=== PATIENT | female | born 1960 | race Caucasian/White ===

== ENCOUNTER 2020-04-22 14:51 | Outpatient (CLI) | payer BC, SELFPAY ==
--- NOTE | 2020-04-22 15:00 | MM_ITS ---
WS: [id number] BILATERAL DIGITAL SCREENING MAMMOGRAPHY WITH CAD CLINICAL INFORMATION: SCREENING HISTORY: Screening mammogram. No current complaints. COMPARISON: . TECHNIQUE: Bilateral CC and MLO views. FINDINGS: The breasts are composed of heterogeneous fibroglandular density tissue, which can limit the detectio n of small underlying mass lesions. Stable 9 mm intramammary lymph node upper outer right breast. No suspicious mass, asymmetry, calcifications, or architectural distortion. No evidence of malignancy. L ucent centered calcifications. MM/[place] [id number] IMPRESSION: BI-RADS: 2-Benign FOLLOW UP: 1 Year Follow-up Recommend return to annual screening mammography.
== END 2020-04-22 14:52 | disposition home or self-care (01) ==
LOC: RADSHAW 14:56
PROVIDERS: Family Provider Family Medicine; PCP Family Medicine; Visit Provider Nurse Practitioner Family
DX: Z12.31 Encounter for screening mammogram for malignant neoplasm of breast (principal)
CPT/HCPCS: 77067

== ENCOUNTER 2020-06-10 11:18 | Outpatient (CLI) | payer BC, SELFPAY ==
[2020-06-10 12:58] LABS: Basophils % 0.2 %; Eosinophils # 0.1 10^3/uL (0.0-0.8); Eosinophils % 1.2 %; Hematocrit 44.4 % (37.0-47.0); Hemoglobin 14.2 g/dL (11.5-15.3); Lymphocytes # 1.6 10^3/uL (0.8-4.8); Lymphocytes % 31.7 %; Mean Corpuscular Hemoglobin 31.1 pg (28.0-34.0); Mean Corpuscular Volume 97.2 fL (81-99); Mean Platelet Volume 9.9 fL (7.4-10.4); Monocytes # 0.6 10^3/uL (0.2-0.9); Monocytes % 11.1 %; Neutrophils # 2.75 10^3/uL (1.8-7.7); Neutrophils % 55.6 %; Nucleated Red Blood Cells % 0 %; Platelet Count 157 10^3/cmm (130-400); Red Blood Count 4.57 10^6/uL (4.1-5.3); Red Cell Distribution Width 12.5 % (12.1-15.1)
[2020-06-10 14:20] LABS: Anion Gap 13.3 (5-19); Blood Urea Nitrogen 15 mg/dL (8-23); Calcium 9.6 mg/dL (8.5-10.5); Carbon Dioxide 29 mmol/L (22-29); Chloride 102 mmol/L (98-107); Glomerular Filtration Rate 85.1 mL/min (90-130); Glucose 102 mg/dL (65-115); Osmolality Calculated 291 mOsm/kg (285-295); Potassium 4.3 mmol/L (3.5-5.1); Sodium 140 mmol/L (136-145)
--- NOTE | 2020-06-10 14:55 | ECG_ITS ---
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 Measurements Intervals [place] Rate: 69 P: 34 IL: 150 QRS: 57 QRSD: 84 T: 45 QT: 402 QTc: 432 Interpretive Statements SINUS RHYTHM INTERPRETATION BASED ON A DEFAULT AGE OF 40 YEARS No previous ECG available for comparison Electronically Signed On 06-10-2020 16:54:21 MOTORCOACH DRIVER by Silvana Bansal M.D. [id number]
== END 2020-06-10 11:19 | disposition home or self-care (01) ==
PROVIDERS: PCP Family Medicine; Visit Provider Specialist
DX: J34.2 Deviated nasal septum (principal)
CPT/HCPCS: 80048; 85025; 93005

== ENCOUNTER → 2020-10-29 08:23 | Outpatient (BNVA) | payer BC, SELFPAY | PROVIDERS: PCP Family Medicine; Visit Provider Family Medicine | DX: Z13.6 Encounter for screening for cardiovascular disorders (principal); M18.0 Bilateral primary osteoarthritis of first carpometacarpal joints; E66.9 Obesity, unspecified; Z68.30 Body mass index [BMI] 30.0-30.9, adult | CPT/HCPCS: 80053; 80061; 82306; 85025 ==

== ENCOUNTER 2021-10-27 13:00 | Outpatient (CLI) | payer BC, SELFPAY ==
--- NOTE | 2021-10-27 13:18 | MM_ITS ---
WS: [id number] BILATERAL 3D TOMOSYNTHESIS DIGITAL SCREENING MAMMOGRAPHY WITH CAD CLINICAL INFORMATION: SCREENING HISTORY: Screening mammogram. No current complaints. COMPARISON: April 22, 2020 TECHNIQUE: Bilateral CC and MLO views. FINDINGS: The breasts are composed of heterogeneous fibroglandular density tissue, which can limit the detectio n of small underlying mass lesions. Punctate and lucent centered calcifications. Eggshell calcificati ons. Stable 9 mm intramammary lymph node upper outer RIGHT breast. No suspicious mass, asymmetry, tess cifications, or architectural distortion. No evidence of malignancy. MM/[place] [id number] IMPRESSION: BI-RADS: 2-Benign FOLLOW UP: 1 Year Follow-up Recommend return to annual screening mammography.
== END 2021-10-27 13:01 | disposition home or self-care (01) ==
LOC: RAD 13:03
PROVIDERS: PCP Family Medicine; Visit Provider Family Medicine
DX: Z12.31 Encounter for screening mammogram for malignant neoplasm of breast (principal)
CPT/HCPCS: 77063; 77067

== ENCOUNTER → 2021-10-28 08:29 | Outpatient (BNVA) | payer BC, SELFPAY | PROVIDERS: PCP Family Medicine; Visit Provider Family Medicine | DX: Z00.00 Encounter for general adult medical examination without abnormal findings (principal); Z13.6 Encounter for screening for cardiovascular disorders; M17.12 Unilateral primary osteoarthritis, left knee | CPT/HCPCS: 80053; 80061; 85025 ==

== ENCOUNTER → 2021-12-20 17:08 | Outpatient (BNVA) | payer BC, SELFPAY | PROVIDERS: PCP Family Medicine; Visit Provider Family Medicine | DX: M54.9 Dorsalgia, unspecified (principal); N39.0 Urinary tract infection, site not specified | CPT/HCPCS: 81000 ==

== ENCOUNTER 2022-01-02 03:57 | Emergency (ER) | payer BC, SELFPAY ==
[2022-01-02 03:59] VITALS: BP 183/110; PULSE 85; RESP 18; TEMP 36.7; O2SAT 99; BMI 30.7
[2022-01-02 04:03] VITALS: BP 172/80; PULSE 79; RESP 22; O2SAT 99
--- NOTE | 2022-01-02 04:06 | CTR_ITS ---
PROCEDURE INFORMATION: Exam: CT Abdomen And Pelvis Without Contrast Exam date and time: 01/02/2022 4:22 AM Age: 61 years old Clinical indication: Abdominal pain; Prior surgery; Surgery type: D&c; Patient HX: C/O epigastric pain. Treated for UTI two weeks ago. ; Additional info: Abd pain TECHNIQUE: Imaging protocol: Computed tomography of the abdomen and pelvis without contrast. Radiation optimization: All CT scans at this facility use at least one of these dose optimization techniques: automated exposure control; mA and/or kV adjustment per patient size (includes targeted exams where dose is matched to clinical indication); or iterative reconstruction. COMPARISON: US pelvic with transvaginal 08/02/2018 8:34 AM RADIATION DOSE METRICS: Total DLP (mGy-cm): 1143.93 FINDINGS: Liver: Normal. No mass. Gallbladder and bile ducts: Elongated gallbladder distension is noted with wall thickening or edema and stones / sludge. Pancreas: Normal. No ductal dilation. Spleen: Normal. No splenomegaly. Adrenal glands: Normal. No mass. Kidneys and ureters: Small scar left kidney. No hydronephrosis. Stomach and bowel: Colonic diverticula noted. No evident pericolic inflammatory change. No findings of abnormal bowel distention. Appendix: No evidence of appendicitis. Intraperitoneal space: Unremarkable. No free air. No significant fluid collection. Vasculature: Unremarkable. No abdominal aortic aneurysm. Lymph nodes: Unremarkable. No enlarged lymph nodes. Urinary bladder: Unremarkable as visualized. Reproductive: Unremarkable as visualized. Bones/joints: No acute fracture. Soft tissues: Unremarkable. CT/CT abdomen pelvis wo con [id number] IMPRESSION: Probable early acute cholecystitis.
--- NOTE | 2022-01-02 04:06 | XRR_ITS ---
PROCEDURE INFORMATION: Exam: XR Chest Exam date and time: 01/02/2022 4:13 AM Age: 61 years old Clinical indication: Patient HX: C/O epigastric pain. Hypertensive on monitor. ; Additional info: Cp TECHNIQUE: Imaging protocol: Radiologic exam of the chest. Views: 1 view. COMPARISON: No relevant prior studies available. FINDINGS: Lungs: Unremarkable. No consolidation. Pleural spaces: Unremarkable. No pleural effusion. No pneumothorax. Heart/Mediastinum: Unremarkable. No cardiomegaly. Bones/joints: No acute findings. XR/XR chest 1V portable [id number] IMPRESSION: No acute findings.
--- NOTE | 2022-01-02 04:07 | ECG_ITS ---
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 Measurements Intervals [place] Rate: 80 P: 31 AL: 153 QRS: 59 QRSD: 76 T: 34 QT: 387 QTc: 446 Interpretive Statements SINUS RHYTHM Compared to ECG 06/10/2020 12:15:31 No significant changes Electronically Signed On 01-02-2022 20:59:07 CDT by Lorie Agrawal M.D. [id number] f
--- NOTE | 2022-01-02 04:08 | W.ED.ABDPA2 ---
HPI - Abdominal Pain General: Chief Complaint: Abdominal Pain Stated Complaint: UTI Time Seen by Provider: 01/02/22 03:58 Source: patient Mode of arrival: ambulatory Limitations: no limitations History of Present Illness: 61-year-old female who states that she was diagnosed with a urinary tract infection 2 weeks ago just finished antibiotics. States that tonight she has been having abdominal pain epigastric in nature along with some chest pain. States that she had some radiation of pain to her back. She denies any vomiting she has had some mild dyspnea. She is concerned that she may be having return of her urinary tract infection she denies any worsening improving factors at this time. Associated Symptoms: Denies chills, dysuria and fever(s) Review of Systems Const: Denies: fever(s), chills, body aches or change in appetite Eyes: Denies: blurry vision or eye discomfort ENMT: Denies: throat pain or dental pain Card: Reports: chest pain Resp: Denies: dyspnea GI: Reports: abdominal pain : Denies: dysuria Musc: Denies: neck pain or back pain Skin/Breast: Denies: rash Neuro: Denies: headache(s) Psych: Denies: depression Enzo/Lymph: Denies: easy bruising All/Imm: Denies: urticaria PFSH ED PFSH: Medical History (Updated 01/02/22 @ 05:28 by Marleni Reyes MD) Poison jose a dermatitis Surgical History H/O shoulder surgery On right History of bunionectomy Bilateral History of D&C Status post correction of deviated nasal septum Family History Other Alzheimer disease Breast cancer Colon cancer Social History Smoking and tobacco status: never smoked Alcohol intake: never Course Vital Signs: Vital signs: Vital Signs Temperature 98.1 F 01/02/22 03:59 Pulse Rate 94 01/02/22 04:33 Respiratory Rate 15 01/02/22 04:38 Blood Pressure 172/80 01/02/22 05:03 Pulse Oximetry 95 01/02/22 05:03 MDM - Abdominal Pain Medical Decision Making Patient presents here with abdominal pain epigastric in nature that is since resolved. CT did show cholelithiasis possible cholecystitis ultrasound here showed gallstones as well no signs of cholecystitis her white count is normal her exam at discharge is benign she has no signs of acute cholecystitis here likely biliary colic we will get her follow-up with surgery she is to return if worsening she understands agrees to plan. Lab Data : 01/02/22 04:16 01/02/22 04:16 Labs/Radiology: Radiology Impressions Abdomen/Pelvis CT 01/02/22 04:06 IMPRESSION: Probable early acute cholecystitis. Chest X-Ray 01/02/22 04:06 IMPRESSION: No acute findings. Laboratory Results WBC 8.0 10^3/uL (4.0-10.0) 01/02/22 04:16 RBC 4.47 10^6/uL (4.1-5.3) 01/02/22 04:16 Hgb 13.9 g/dL (11.5-15.3) 01/02/22 04:16 Hct 43.1 % (37.0-47.0) 01/02/22 04:16 MCV 96.4 fl (81-99) 01/02/22 04:16 MCH 31.1 pg (28.0-34.0) 01/02/22 04:16 MCHC 32.3 g/dL (30.0-36.0) 01/02/22 04:16 RDW 12.6 % (12.1-15.1) 01/02/22 04:16 Plt Count 167 10^3/cmm (130-400) 01/02/22 04:16 MPV 10.5 fL (7.4-10.4) H 01/02/22 04:16 Neut % (Auto) 79.5 % 01/02/22 04:16 Lymph % (Auto) 15.2 % 01/02/22 04:16 [place] % (Auto) 4.6 % 01/02/22 04:16 Eos % (Auto) 0.1 % 01/02/22 04:16 Baso % (Auto) 0.4 % 01/02/22 04:16 Neut # (Auto) 6.38 10^3/uL (1.8-7.7) 01/02/22 04:16 Lymph # (Auto) 1.2 10^3/uL (0.8-4.8) 01/02/22 04:16 [place] # (Auto) 0.4 10^3/uL (0.2-0.9) 01/02/22 04:16 Eos # (Auto) 0.0 10^3/uL (0.0-0.8) 01/02/22 04:16 Baso # (Auto) 0.0 10^3/uL (0.0-0.1) 01/02/22 04:16 Nucleated RBC % (auto) 0 % 01/02/22 04:16 Nucleated RBCs # 0.0 /100WBC 01/02/22 04:16 Sodium 135 mmol/L (136-145) L 01/02/22 04:16 Potassium 4.1 mmol/L (3.5-5.1) 01/02/22 04:16 Chloride 101 mmol/L (98-107) 01/02/22 04:16 Carbon Dioxide 21 mmol/L (22-29) L 01/02/22 04:16 Anion Gap 17.1 (5-19) 01/02/22 04:16 BUN 17 mg/dL (8-23) 01/02/22 04:16 Creatinine 0.6 mg/dL (0.5-0.9) 01/02/22 04:16 GFR Calculation 101.3 mL/min (90-130) 01/02/22 04:16 Glucose 132 mg/dL (65-115) H 01/02/22 04:16 Calculated Osmolality 283 mOsm/kg (285-295) L 01/02/22 04:16 Calcium 9.2 mg/dL (8.5-10.5) 01/02/22 04:16 Total Bilirubin 0.3 mg/dL (0.15-1.2) 01/02/22 04:16 AST 15 U/L (0-32) 01/02/22 04:16 ALT 26 U/L (0-33) 01/02/22 04:16 Alkaline Phosphatase 84 IU/L (35-105) 01/02/22 04:16 Troponin T Baseline 6 ng/L (0-10) 01/02/22 04:16 Total Protein 6.6 g/dL (6.6-8.7) 01/02/22 04:16 Albumin 4.3 g/dL (3.5-5.2) 01/02/22 04:16 Globulin 2.3 g/dL (1.3-4.6) 01/02/22 04:16 Lipase 18 U/L (13-60) 01/02/22 04:16 Urine Color Yellow (Yellow) 01/02/22 05:25 Urine Appearance Clear (CLEAR) 01/02/22 05:25 Urine pH 7 (5-7) 01/02/22 05:25 Ur Specific [place] 1.005 (1.005-1.030) 01/02/22 05:25 Urine Protein Neg (Negative) 01/02/22 05:25 Urine Glucose (UA) Norm (Normal) 01/02/22 05:25 Urine Ketones Negative (Negative) 01/02/22 05:25 Urine Blood Neg (Negative) 01/02/22 05:25 Urine Nitrate Negative (Negative) 01/02/22 05:25 Urine Bilirubin Neg (Negative) 01/02/22 05:25 Urine Urobilinogen Neg mg/dL (Negative) 01/02/22 05:25 Ur Leukocyte Esterase Negative (Negative) 01/02/22 05:25 EKG Data EKG 1: I personally reviewed and interpreted this EKG as follows: EKG interpretation date: 01/02/22 EKG interpretation time: 04:13 Interpretation: nsr hr [address] or t wave abnormalities qrs 76 qtc 422 Discharge Plan Discharge Patient Disposition: Home Clinical Impression: Cholelithiasis Qualifiers: Cholelithiasis location: gallbladder Cholecystitis presence: without cholecystitis Biliary obstruction: without biliary obstruction Qualified Code(s): K80.20 - Calculus of gallbladder without cholecystitis without obstruction Condition: Stable Prescriptions: New hydrocodone-acetaminophen 5-325 mg tablet 1 tab PO Q6H PRN (Reason: pain) Qty: 14 0RF ondansetron 4 mg tablet,disintegrating 4 mg PO Q6H PRN (Reason: nausea and vomiting) Qty: 14 0RF No Action diclofenac sodium 50 mg tablet,delayed release (DR/EC) 50 mg PO BID Qty: 180 1RF Rx Instructions: Take with food cephalexin 500 mg capsule 500 mg PO BID 10 Days Qty: 20 0RF Discharge Orders: Discharge ED (Routine); Ordered 01/02/22 Ordered By: Marleni Reyes Referrals: Ulysses Desir MD [Physician] - 1-3 days Annita Redmond DO [Primary Care Provider] - Discharge Diet: Advance as tolerated Discharge Activity: Resume usual activity Patient Instructions: Gallstones (ED), Opioid Safety Coding Level of Care Code ED Senior Benefits Specialist for Lon Johnson
[2022-01-02 04:23] LABS: Basophils % 0.4 %; Eosinophils % 0.1 %; Hematocrit 43.1 % (37.0-47.0); Hemoglobin 13.9 g/dL (11.5-15.3); Lymphocytes # 1.2 10^3/uL (0.8-4.8); Lymphocytes % 15.2 %; Mean Corpuscular HGB Conc 32.3 g/dL (30.0-36.0); Mean Corpuscular Hemoglobin 31.1 pg (28.0-34.0); Mean Corpuscular Volume 96.4 fl (81-99); Mean Platelet Volume 10.5 fL (7.4-10.4); Monocytes # 0.4 10^3/uL (0.2-0.9); Monocytes % 4.6 %; Neutrophils # 6.38 10^3/uL (1.8-7.7); Neutrophils % 79.5 %; Nucleated Red Blood Cells % 0 %; Platelet Count 167 10^3/cmm (130-400); Red Blood Count 4.47 10^6/uL (4.1-5.3); Red Cell Distribution Width 12.6 % (12.1-15.1)
[2022-01-02 04:33] VITALS: BP 172/80; PULSE 94; RESP 18; O2SAT 93
[2022-01-02] MEDS: ondansetron 2 mg/ML SDV 2 mL 4 MG IVP (04:34)
[2022-01-02 04:38] VITALS: RESP 15; O2SAT 94
[2022-01-02] MEDS: morphine 4 mg/mL SDV 1 mL IVP (04:38)
[2022-01-02 04:48] LABS: Alanine Aminotransferase 26 U/L (0-33); Albumin Level 4.3 g/dL (3.5-5.2); Alkaline Phosphatase 84 IU/L (35-105); Anion Gap 17.1 (5-19); Aspartate Amino Transferase 15 U/L (0-32); Blood Urea Nitrogen 17 mg/dL (8-23); Calcium 9.2 mg/dL (8.5-10.5); Carbon Dioxide 21 mmol/L (22-29); Chloride 101 mmol/L (98-107); Creatinine Clr Calc Pharmacy 107.5122; Globulin 2.3 g/dL (1.3-4.6); Glomerular Filtration Rate 101.3 mL/min (90-130); Glucose 132 mg/dL (65-115); Lipase 18 U/L (13-60); Osmolality Calculated 283 mOsm/kg (285-295); Potassium 4.1 mmol/L (3.5-5.1); Sodium 135 mmol/L (136-145); Total Bilirubin 0.3 mg/dL (0.15-1.2); Total Protein 6.6 g/dL (6.6-8.7)
[2022-01-02 04:49] LABS: Troponin(5th) Baseline 6 ng/L (0-10)
[2022-01-02] MEDS: sodium chloride 0.9% 500 ML 999 ML IV (04:55)
--- NOTE | 2022-01-02 04:56 | USR_ITS ---
PROCEDURE INFORMATION: Exam: US Abdomen, Limited; Right Upper Quadrant Exam date and time: 01/02/2022 5:07 AM Age: 61 years old Clinical indication: Abdominal pain; Additional info: Ruq pain TECHNIQUE: Imaging protocol: Real time ultrasound of the abdomen with image documentation. Limited exam focused on the right upper quadrant. COMPARISON: CT abdomen pelvis wo con [id number] 01/02/2022 4:22 AM FINDINGS: Liver: Normal. No masses. Gallbladder: There are multiple hyperechoic foci seen within the gallbladder lumen compatible with gallbladder sludge and gallstones. There is asymmetric gallbladder wall thickening present measuring 4.7 mm. Biliary ducts: Normal. No stones. No dilation. Pancreas: Visualized pancreas is unremarkable. Right kidney: Normal. No mass. No hydronephrosis. US/US gall bladder [id number] IMPRESSION: Multiple gallstones and gallbladder sludge with asymmetric gallbladder wall thickening measuring 4.7 mm, findings suggesting gallstone cholecystitis.
[2022-01-02 05:03] VITALS: BP 172/80; O2SAT 95
[2022-01-02 05:31] LABS: Add Urine Microscopic? NO; Charge for UA Resulting for Rev
[2022-01-02 05:35] LABS: Bilirubin Urine Neg (Negative); Blood Urine Neg (Negative); Glucose Urine UA Norm (Normal); Ketones Urine Negative (Negative); Leukocyte Esterase Urine Negative (Negative); Nitrate Urine Negative (Negative); Protein Urine Neg (Negative); Specific Gravity, Urine 1.005 (1.005-1.030); Urine Appearance Clear (CLEAR); Urine Color Yellow (Yellow); Urobilinogen Urine Neg (Negative); pH Urine 7 (5-7)
--- NOTE | 2022-01-02 14:34 | DCPLANNER ---
Addendum entered by Lacey Ross 01/13/22 11:17: Patient had a follow up appointment scheduled with general surgery - patient did attend appointment. Addendum entered by Lacey Ross 01/05/22 15:34: Patient has a follow up appointment scheduled for Monday January 10, 2022 at 8:[address] Desir at general surgery. Clinic will call patient with appointment information. Original Note: manager financial reporting had message to schedule a follow up appointment for patient with general surgery. manager financial reporting sent patients information to the front office staff at general surgery. Patients information will be printed and reviewed. Clinic will call patient with appointment information.
== END 2022-01-02 05:42 | disposition home or self-care (01) ==
PROVIDERS: Emergency Provider Emergency Medicine; PCP Family Medicine
DX: K80.20 Calculus of gallbladder without cholecystitis without obstruction (principal)
CPT/HCPCS: 71045; 74176; 76705; 80053; 81003; 83690; 84484; 85025; 93005; 96361; 96374; 96375; 99285; J2270; J2405; J7040

== ENCOUNTER → 2022-04-27 08:24 | Outpatient (BNVA) | payer BC, SELFPAY | PROVIDERS: PCP Family Medicine; Visit Provider Family Medicine | DX: Z13.6 Encounter for screening for cardiovascular disorders (principal) | CPT/HCPCS: 80061 ==

== ENCOUNTER 2022-04-29 13:44 | Outpatient (CLI) | payer BC, SELFPAY ==
--- NOTE | 2022-04-29 14:01 | XR_ITS ---
WS: [id number] Exam: XR knee LT 3V* [id number] Date/Time of Exam: 04/29/2022 2:04 PM Reason For Exam: increased left knee pain No fracture or dislocation. Mild tricompartmental degenerative change. Spurring of the posterior palma lla. No joint effusion. XR/XR knee LT 3V* [id number] IMPRESSION: 1. Mild degenerative changes.
== END 2022-04-29 13:45 | disposition home or self-care (01) ==
PROVIDERS: PCP Family Medicine; Visit Provider Family Medicine
DX: M17.12 Unilateral primary osteoarthritis, left knee (principal)
CPT/HCPCS: 73562

== ENCOUNTER → 2022-10-21 08:56 | Outpatient (BNVA) | payer BC, SELFPAY | PROVIDERS: PCP Family Medicine; Visit Provider Family Medicine | DX: E78.5 Hyperlipidemia, unspecified (principal) | CPT/HCPCS: 80053; 80061; 85025 ==

== ENCOUNTER → 2022-11-14 08:05 | Outpatient (BNVA) | payer BC, SELFPAY | PROVIDERS: PCP Family Medicine; Visit Provider Nurse Practitioner Family | DX: N39.0 Urinary tract infection, site not specified (principal); S39.012A Strain of muscle, fascia and tendon of lower back, initial encounter; X50.3XXA Overexertion from repetitive movements, initial encounter | CPT/HCPCS: 81000 ==

== ENCOUNTER 2022-11-17 08:55 | Outpatient (CLI) | payer BC, SELFPAY ==
--- NOTE | 2022-11-17 09:00 | MM_ITS ---
WS: [id number] Bilateral screening 3D tomosynthesis digital mammogram, 11/17/2022 Clinical Data: SCREENING Comparison: 10/27/2021, 04/22/2020, 02/04/2019, 11/05/2014, 09/02/2010, 09/01/2009, 08/27/2008, 07/14/2006. Findings: The breast parenchymal pattern shows genies density. No spiculated masses or clustered calcifications are seen. There are no secondary signs of carcinoma. MM/[place] [id number] Impression: 1. Negative bilateral mammogram unchanged. 2. Recommend annual screening mammograms. BIRADS: 1-Negative FOLLOW UP: 1 Year Follow-up The CAD apparel stock checker was used.
== END 2022-11-17 08:56 | disposition home or self-care (01) ==
PROVIDERS: PCP Family Medicine; Visit Provider Family Medicine
DX: Z12.31 Encounter for screening mammogram for malignant neoplasm of breast (principal)
CPT/HCPCS: 77063; 77067

== ENCOUNTER 2023-04-21 09:55 | Outpatient (CLI) | payer BC, SELFPAY ==
--- NOTE | 2023-04-21 10:01 | XR_ITS ---
WS: [id number] Right hand, 3 views, 04/21/2023 Clinical Data: right CMC pain Comparison: None. Findings: No fractures or dislocations are seen. The soft tissues are unremarkable. There is osteoa rthritic change of the articulation at the right first CMC joint. 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
== END 2023-04-21 09:56 | disposition home or self-care (01) ==
LOC: RAD 09:57
PROVIDERS: PCP Family Medicine; Visit Provider Family Medicine
DX: M18.0 Bilateral primary osteoarthritis of first carpometacarpal joints (principal); Z13.6 Encounter for screening for cardiovascular disorders; E78.5 Hyperlipidemia, unspecified
CPT/HCPCS: 73130; 80053; 85651; 86038; 86140; 86200; 86431

== ENCOUNTER → 2023-10-20 08:50 | Outpatient (BNVA) | payer BC, SELFPAY | PROVIDERS: PCP Family Medicine; Visit Provider Family Medicine | DX: E78.5 Hyperlipidemia, unspecified (principal); M17.12 Unilateral primary osteoarthritis, left knee | CPT/HCPCS: 80053; 80061; 85025 ==

== ENCOUNTER 2023-11-20 09:25 | Outpatient (CLI) | payer BC, SELFPAY ==
--- NOTE | 2023-11-20 09:30 | MM_ITS ---
WS: [id number] BILATERAL SCREENING DIGITAL TOMOSYNTHESIS MAMMOGRAM WITH CAD HISTORY: screening. COMPARISON: 11/17/2022, 10/27/2021 and 04/22/2020 Bilateral CC and MLO views with tomosynthesis and synthetic mammography submitted. Computer aided det ection analyzed. Breast composition: The breasts are heterogeneously dense, which may obscure small masses. No suspici ous masses, microcalcifications or architectural distortion. Benign lymph node upper outer quadrant R IGHT breast. Benign calcifications in each breast. There are no new areas of distortion. No asymmetri es. MM/[place] [id number] IMPRESSION: BI-RADS: 2-Benign FOLLOW UP: 1 Year Follow-up
== END 2023-11-20 09:26 | disposition home or self-care (01) ==
LOC: RAD 09:26
PROVIDERS: PCP Family Medicine; Visit Provider Family Medicine
DX: Z12.31 Encounter for screening mammogram for malignant neoplasm of breast (principal); R92.333 Mammographic heterogeneous density, bilateral breasts
CPT/HCPCS: 77063; 77067

== ENCOUNTER 2024-04-19 15:21 | Outpatient (CLI) | payer MEDICARE, SELFPAY ==
--- NOTE | 2024-04-19 15:30 | XR_ITS ---
WS: [id number] DEXA (DUAL ENERGY X-RAY ABSORPTIOMETRY) Bone mineral density was performed using a [employer] machine. HISTORY: menopausal state COMPARISON: None available. Lumbar spine BMD (L1-L4): 1.245 g/cm2 T score: 0.5 Z score: 1.2 Total hip BMD: Left: 1.195 g/cm2. T score: 1.5 Z score: 2.0 Right: 1.163 g/cm2. T score: 1.2 Z score: 1.8 10 year probability of a major osteoporotic fracture is 5.5%. XR/XR DEXA axial skeleton* [id number] IMPRESSION: NORMAL BONE MINERAL DENSITY based upon the WHO classification for females.
== END 2024-04-19 15:22 | disposition home or self-care (01) ==
LOC: RAD 15:22
PROVIDERS: PCP Family Medicine; Visit Provider Family Medicine
DX: Z13.820 Encounter for screening for osteoporosis (principal); Z78.0 Asymptomatic menopausal state
CPT/HCPCS: 77080

== ENCOUNTER → 2024-11-21 10:00 | Outpatient (BNVA) | payer MEDICARE, SELFPAY | PROVIDERS: PCP Family Medicine; Visit Provider Family Medicine | DX: E78.5 Hyperlipidemia, unspecified (principal); K21.9 Gastro-esophageal reflux disease without esophagitis; M17.11 Unilateral primary osteoarthritis, right knee; E66.9 Obesity, unspecified | CPT/HCPCS: 80053; 80061; 84443; 85025 ==

== ENCOUNTER 2024-11-26 08:43 | Outpatient (CLI) | payer MEDICARE, SELFPAY ==
--- NOTE | 2024-11-26 08:40 | MM_ITS ---
WS: [id number] BILATERAL 3D TOMOSYNTHESIS DIGITAL SCREENING MAMMOGRAPHY WITH CAD CLINICAL INFORMATION: screening HISTORY: Screening mammogram. No current complaints. COMPARISON: 2023 TECHNIQUE: Bilateral CC and MLO views. FINDINGS: The breasts are composed of heterogeneous fibroglandular density tissue, which can limit the detection of small underlying mass lesions. No suspicious mass, asymmetry, calcifications, or architectural distortion. No evidence of malignancy. Lucent centered calcification RIGHT breast. Stable intramammary lymph node RIGHT axillary tail. Vascular calcification. MM/MM [facility] tomosynthesis [id number] IMPRESSION: DENSITY: The breasts are heterogeneously dense, which may obscure small masses. BI-RADS: 2 - Benign FOLLOW UP: 1 Year Follow-up Recommend return to annual screening mammography.
== END 2024-11-26 08:44 | disposition home or self-care (01) ==
PROVIDERS: PCP Family Medicine; Visit Provider Family Medicine
DX: Z12.31 Encounter for screening mammogram for malignant neoplasm of breast (principal)
CPT/HCPCS: 77063; 77067